=== PATIENT | male | born 1975 | race Hispanic/Latino ===

== ENCOUNTER 2021-12-24 15:58 | Emergency (ER) | payer OTHER ==
[2021-12-24] MEDS ORDERED: cefTRIAXone\\ROCEPHIN 1 GM VIAL ONE (16:56)
[2021-12-24] MEDS ORDERED: Sterile Water 10 ML ONE (16:57)
== END 2021-12-24 17:20 | disposition home or self-care (01) ==
LOC: CSHERS 15:58
DX: L03.114 Cellulitis of left upper limb (principal); E78.5 Hyperlipidemia, unspecified
CPT/HCPCS: 96372; 99283; J0696

== ENCOUNTER 2024-02-15 16:41 | Emergency (ER) | payer BC ==
[2024-02-15] MEDS ORDERED: Acetaminophen 500 MG TAB ONE (16:50)
[2024-02-15 17:19] LABS: #Basophils 0.05 10x3/uL (0.0-0.2); #Eosinophils 0.03 10x3/uL (0.0-0.5); #Monocytes 0.09 10x3/uL (0.0-1.1); #Neutrophils 5.85 10x3/uL (1.5-8.4); %Basophils 0.7 % (0.0-2.0); %Eosinophils 0.4 % (0.0-6.0); %Monocytes 1.3 % (0.0-10.0); %Neutrophils 83.3 % (40.0-75.0); Hematocrit 41.4 % (38.8-50.0); Hemoglobin 14.7 g/dL (13.5-17.5); Mean Corpuscular HGB CONC 35.5 g/dL (32.0-36.0); Mean Corpuscular Hemoglobin 31.9 pg (27.0-33.0); Mean Corpuscular Volume 89.8 fL (81.2-95.1); Mean Platelet Volume 10.8 fL (7.4-10.4); Platelet Count 214 10x3/uL (150-450); RBC Distribution Width 12.5 % (11.5-14.5); Red Blood Cell (RBC) Count 4.61 10x6/uL (4.32-5.72)
[2024-02-15 17:31] LABS: ALT (SGPT) 33 U/L (8-55); AST (SGOT) 27 U/L (5-34); Alkaline Phosphatase 82 U/L (40-110); Anion Gap 19 mmol/L (10-20); BUN (Urea Nitrogen) 12 mg/dL (8.9-20.6); Bilirubin, Total 0.6 mg/dL (0.2-1.2); Calc. Creatinine Clearance 0 mL/min (70-130); Calcium 8.8 mg/dL (7.8-10.44); Carbon Dioxide 17 mmol/L (22-29); Chloride 106 mmol/L (98-107); Estimated GFR 62; Globulin 2.9 g/dL (2.4-3.5); Glucose 115 mg/dL (70-105); Protein, Total 6.9 g/dL (6.0-8.3); Sodium 138 mmol/L (136-145)
[2024-02-15 17:37] LABS: Troponin I Less than 0.010 ng/mL (< 0.028)
[2024-02-15] MEDS ORDERED: Ibuprofen 200 MG TAB ONE (18:43)
== END 2024-02-15 18:56 | disposition home or self-care (01) ==
LOC: CSHERS 16:41
DX: U07.1 COVID-19 (principal); E86.0 Dehydration; E78.5 Hyperlipidemia, unspecified; Z79.899 Other long term (current) drug therapy
CPT/HCPCS: 71045; 80053; 83880; 84484; 85025; 93005; 94760; 96360; 96361

== ENCOUNTER 2024-03-15 07:56 | Outpatient (CLI) | payer OTHER | END 2024-03-15 07:57 | disposition home or self-care (01) | LOC: CSHCT 07:56 | PROVIDERS: ATTEND Family Medicine | DX: R06.02 Shortness of breath (principal); K76.0 Fatty (change of) liver, not elsewhere classified | CPT/HCPCS: 75571 ==